=== PATIENT | male | born 1955 | race Caucasian/White ===

== ENCOUNTER → 2016-06-09 | Outpatient (CLI) | payer OTHER ==
[~2016-06-09] MED LIST: CYCL10TA PO; FISH1000 PO; IBUP200C PO; MULTCAP PO; SILD25TA PO; TAMS0.4C2 PO; [UNRECOGNIZED DRUG - OTHER] PO
--- NOTE | 2016-07-03 23:29 | ECWPNPC ---
PATIENT NAME: JOHANN METCALF : 1955 GENDER: MALE VISIT DATE: 06/09/2016 DISCHARGE DATE: 06/09/16 1425 VISIT LOCKED DATE TIME: PHYSICIAN: ALVARO HARRELL RESOURCE: ALVARO HARRELL REASON FOR APPOINTMENT 1. LOW BACK HISTORY OF PRESENT ILLNESS HISTORY OF PRESENT ILLNESS: PAIN THE PATIENT DESCRIBES THE PAIN... FALL RISK SCREENING: SCREENING :NO FALLS IN THE PAST YEAR TODAY'S VISIT: NOTES: FOLLOWUP FOR LOW BACK PAIN . RATES PAIN TODAY 5/10. DESCRIBES PAIN CONSTANT, ACHING, BURNING, SHARP AND STIFF. PAIN CENTERED ACROSS LOSS BACK WITH MINIMAL RADIATION TO LEGSMORNING SPECIFICALLY. REPORTS IT IS HARD TO MOVE, PAIN TO RISE TO A STANDING POSITION OR TO WALK ANY DISTANCE.. CURRENT MEDICATIONS TAKING ACETAMINOPHEN 500 MG TABLET 2 CAP(S) ORALLY PRN, NOTES: 2 WEEKS TAKING TAMSULOSIN HCL 0.4 MG CAPSULE 1 CAPSULE ORAL DAILY, NOTES: 9PM TAKING VIAGRA 50 MG TABLET ORAL DIRECTED, NOTES: 1 WEEK AGO TAKING MULTIVITAMIN TABLET CHEWABLE ORALLY DAILY, NOTES: 8AM TAKING FISH OIL 1000 MG CAPSULE 1 CAPSULE ORALLY ONCE A DAY, NOTES: 8AM TAKING CINNAMON 500 MG CAPSULE 2 CAPSULES ORALLY DAILY TAKING VITAMIN D-3 SUPER STRENGTH 2000 UNIT TABLET 1 TABLET ORALLY ONCE A DAY TAKING MYRBETRIQ 25 MG TABLET EXTENDED RELEASE 24 HOUR 1 TABLET ORALLY ONCE A DAY NOT-TAKING GABAPENTIN 300 MG CAPSULE 1 CAPSULE ORALLY THREE TIMES A DAY, NOTES: 1 WEEK AGO MEDICATION LIST REVIEWED AND RECONCILED WITH THE PATIENT PAST MEDICAL HISTORY ARTHRITIS ATYPICAL ANGINA ALLERGIES N.K.D.A. SOCIAL HISTORY GENERAL: TOBACCO USE ARE YOU A:NONSMOKER LEARNING BARRIERS / SPECIAL NEEDS ORIENTED TO PLAN OF CARE: PATIENT, PAIN MANAGEMENT PATIENT, ORIENTED TO PLAN OF CARE: PATIENT, PAIN MANAGEMENT PATIENT. NEW PATIENT PAIN DIARY TODAY'S VISITNOTES FROM 0-10, WHAT LEVEL IS YOUR PAIN TODAY?0 PAIN CLINIC PFS, CLERGY, PUBLIC HEALTH REFERRALS PFS REFERRAL NEEDED?NO CLERGY REFERRAL NEEDED?NO PUBLIC HEALTH REFERRAL NEEDED?NO WAS THE PROVIDER NOTIFIED OF ANY PERTINENT INFO?NO PFS REFERRAL NEEDED?NO CLERGY REFERRAL NEEDED?NO PUBLIC HEALTH REFERRAL NEEDED?NO WAS THE PROVIDER NOTIFIED OF ANY PERTINENT INFO?NO REVIEW OF SYSTEMS CONSTITUTIONAL: ANY CHANGE IN YOUR MEDICAL CONDITION? NO . CHILLS NO . FEVER NO . INFECTION: DO YOU HAVE NEW INFECTIONS? NO . DO YOU HAVE HISTORY OF MRSA? NO . MUSCULOSKELETAL: ANY NEW PATTERNS OF PAIN OR NUMBNESS? NO . GASTROENTEROLOGY: ANY NEW CHANGE IN BOWEL CONTROL? NO . GENITOURINARY: ANY NEW CHANGE IN BLADDER CONTROL? NO . IS THERE A CHANCE YOU COULD BE ? NO . HEMATOLOGY/LYMPH: DO YOU TAKE ANY BLOOD THINNERS? (FOR EXAMPLE- COUMADIN, PLAVIX, AGGRENOX, PLATEL, PRADAXA, OR XARELTO) NO . WHEN WAS YOUR LAST DOSE? DATE: TIME: . NEUROLOGY: HAVE YOU FALLEN IN THE PAST 6 MONTHS? NO . ANY NEW EXTREMITY NUMBNESS OR WEAKNESS? NO . CARDIOLOGY: DO YOU HAVE A PACEMAKER OR DEFIBRILLATOR? NO . RESPIRATORY: HAVE YOU BEEN SICK IN THE PAST WEEK? NO . FEVER NO . FLU LIKE SYMPTOMS? NO . COUGH NO . INTEGUMENTARY: DO YOU HAVE ANY RASHES OR OPEN SORES? NO . ALLERGIC/IMMUNO: ARE YOU ALLERGIC TO SHELLFISH OR IV DYE? NO . ANY NEW ALLERGIES? NO . PSYCHIATRIC: DO YOU HAVE THOUGHTS OF HURTING YOURSELF OR SOMEONE ELSE? NO . ARE YOU ABUSED, NEGLECTED, OR IN AN UNSAFE ENVIRONMENT? NO . ENDOCRINOLOGY: ARE YOU DIABETIC? NO . OTHER: DO YOU NEED ANY PRESCRIPTIONS? NO . IF YES, PLEASE LIST: ____ . ANY NEW PROBLEMS WITH YOUR MEDICATIONS? NO . WHEN DID YOU LAST EAT? ____ . WHEN DID YOU LAST DRINK? ____ . WHAT DID YOU LAST DRINK? ____ . NAME OF PERSON DRIVING YOU HOME? ____ . DO YOU HAVE ANY OTHER QUESTIONS OR CONCERNS NO . REVIEWED BY: PROVIDER: ALVARO LEE . VITAL SIGNS WT 195 LBS, HT 72 IN, BMI 26.44 INDEX, BP 172/84 MM HG, HR 91 /MIN, RR 18 /MIN, TEMP 97.5 F, OXYGEN SAT % 99, NA INITIALS TL 1352, REVIEWED BY: AD. EXAMINATION GENERAL EXAMINATION: PSYCHALERT , ORIENTED X 3 , APPROPRIATE MOOD AND AFFECT . APPEARS UNCOMFORTABLE. LUNGS:CLEAR TO AUSCULTATION BILATERALLY. HEART:HEART RATE REGULAR. MUSCULOSKELETAL:PALPATION: POSITIVE FOR PAIN OVER L/S SPINE. POSITIVE FOR PAIN OVER L/S PARASPINAL MUSCLES AND LUMBAR FACETS. SLOW TO RISE TO STANDING POSITION. PAIN REPORTED WITH BACK EXTENSION ACROSS LOW BACK. MODERATE PAIN WITH BACK FLEXION. , TRIGGER POINTS:, ELICITED WITH PALPATION OVER LUMBAR PARAVERTEBRAL MUSCLES AND INTO THE SECRUM. RESTRICTION OF ROM IN THIS AREA. ASSESSMENTS LUMBAR FACET ARTHROPATHY - M12.88 (PRIMARY) MYALGIA - M79.1 LUMBAR RADICULOPATHY, CHRONIC - M54.16 TREATMENT LUMBAR FACET ARTHROPATHY NOTES: ENCOURAGED TO DO EXERCISES AND STRETCHES PER PHYSICAL THERAPY. WALK EVERY DAY. MYALGIA TRIGGER POINT 3 + ALVARO FELIPE 06/09/2016 2:16:18 PM > LOW BACK NOTES: WALK TOLERATED. PROCEDURES PN WORKMANS' COMP OPINION IN YOUR OPINION, WAS THE INCIDENT THAT THE PATIENT DESCRIBED THE COMPETENT MEDICAL CAUSE OF THIS INJURY/ILLNESS? YES ARE THE PATIENT'S COMPLAINTS CONSISTENT WITH HIS/HER HISTORY OF THE INJURY/ILLNESS? YES IS THE PATIENT'S HISTORY OF THE INJURY/ILLNESS CONSISTENT WITH YOUR OBJECTIVE FINDING? YES WHAT IS THE PERCENTAGE OF TEMPORARY IMPAIRMENT? TOTAL = 100% PER REFERRING PROVIDER IS THE PATIENT WORKING? NO DOCTOR ON SITE: TARNU DENTON MD PROCEDURE CODES FA211 ESTABILISHED PATIENT [facility] CHARGE FOLLOW UP WC LOW BACK (REASON: CHECK AUTH FOR TPI) ELECTRONICALLY SIGNED BY JEFRY CARTWRIGHT ON 07/02/2016 AT 01:25 PM EST DISCLAIMER : THIS IS A VISIT SUMMARY EXTRACTED FROM THE [employer] CHART. IT IS NOT A COPY OF THE [employer] PROGRESS NOTE. EMORY
== END ==
LOC: M PAIN 14:00
PROVIDERS: ATTEND Nurse Practitioner Family
DX: Z09 Encounter for follow-up examination after completed treatment for conditions other than malignant neoplasm (principal); G89.29 Other chronic pain; M12.88 Other specific arthropathies, not elsewhere classified, other specified site; M79.1 Myalgia; M54.16 Radiculopathy, lumbar region; I20.9 Angina pectoris, unspecified; Z79.1 Long term (current) use of non-steroidal anti-inflammatories (NSAID); Z79.899 Other long term (current) drug therapy

== ENCOUNTER → 2016-09-15 | Outpatient (CLI) | payer OTHER ==
[~2016-09-15] MED LIST changes: +BUPIVACAINE HCL 0.25% 10 ML VIAL As Ordered ONE; +BUPIVACAINE HCL 0.25% 30 ML VIAL As Ordered ONE; +TRIAMCINOLONE ACETONIDE SUSP 40 MG/ML VIAL (J3301) As Ordered ONE
--- NOTE | 2016-09-20 00:29 | ECWPNPC ---
PATIENT NAME: JOHANN METCALF : 1955 GENDER: MALE VISIT DATE: 09/15/2016 DISCHARGE DATE: 09/15/16 1453 VISIT LOCKED DATE TIME: PHYSICIAN: TARUN ALCOCER RESOURCE: TARUN ALCOCER REASON FOR APPOINTMENT 1. TPI-W/C HISTORY OF PRESENT ILLNESS HISTORY OF PRESENT ILLNESS: PAIN THE PATIENT DESCRIBES THE PAIN... FALL RISK SCREENING: SCREENING :NO FALLS IN THE PAST YEAR CURRENT MEDICATIONS TAKING ACETAMINOPHEN 500 MG TABLET 2 CAP(S) ORALLY PRN, NOTES: NONE RECENT TAKING TAMSULOSIN HCL 0.4 MG CAPSULE 1 CAPSULE ORAL DAILY, NOTES: [id number] TAKING VIAGRA 50 MG TABLET ORAL DIRECTED, NOTES: 1 WEEK AGO TAKING MULTIVITAMIN TABLET CHEWABLE ORALLY DAILY, NOTES: 09-14-16 AM TAKING FISH OIL 1000 MG CAPSULE 1 CAPSULE ORALLY ONCE A DAY, NOTES: 09-14-16 AM TAKING CINNAMON 500 MG CAPSULE 2 CAPSULES ORALLY DAILY, NOTES: 09-14-16 AM TAKING VITAMIN D3 SUPER STRENGTH 2000 UNIT TABLET 1 TABLET ORALLY ONCE A DAY, NOTES: 09-14-16 AM TAKING MYRBETRIQ 25 MG TABLET EXTENDED RELEASE 24 HOUR 1 TABLET ORALLY ONCE A DAY, NOTES: [id number] DISCONTINUED GABAPENTIN 300 MG CAPSULE 1 CAPSULE ORALLY THREE TIMES A DAY MEDICATION LIST REVIEWED AND RECONCILED WITH THE PATIENT PAST MEDICAL HISTORY ARTHRITIS ATYPICAL ANGINA ALLERGIES N.K.D.A. SOCIAL HISTORY GENERAL: PAIN CLINIC PFS, CLERGY, PUBLIC HEALTH REFERRALS CLERGY REFERRAL NEEDED?NO WAS THE PROVIDER NOTIFIED OF ANY PERTINENT INFO?NO PFS REFERRAL NEEDED?NO PUBLIC HEALTH REFERRAL NEEDED?NO PATIENT: ____. REVIEW OF SYSTEMS CONSTITUTIONAL: ANY CHANGE IN YOUR MEDICAL CONDITION? YES, LEFT KNEE SCOPE IN JUN 2016 ALL HEALED . CHILLS NO . FEVER NO . INFECTION: DO YOU HAVE NEW INFECTIONS? NO . DO YOU HAVE HISTORY OF MRSA? NO . MUSCULOSKELETAL: ANY NEW PATTERNS OF PAIN OR NUMBNESS? NO . GASTROENTEROLOGY: ANY NEW CHANGE IN BOWEL CONTROL? NO . GENITOURINARY: ANY NEW CHANGE IN BLADDER CONTROL? NO . IS THERE A CHANCE YOU COULD BE ? NO . HEMATOLOGY/LYMPH: DO YOU TAKE ANY BLOOD THINNERS? (FOR EXAMPLE- COUMADIN, PLAVIX, AGGRENOX, PLATEL, PRADAXA, OR XARELTO) NO . WHEN WAS YOUR LAST DOSE? DATE: TIME: . NEUROLOGY: HAVE YOU FALLEN IN THE PAST 6 MONTHS? NO . ANY NEW EXTREMITY NUMBNESS OR WEAKNESS? NO . CARDIOLOGY: DO YOU HAVE A PACEMAKER OR DEFIBRILLATOR? NO . RESPIRATORY: HAVE YOU BEEN SICK IN THE PAST WEEK? NO . FEVER NO . FLU LIKE SYMPTOMS? NO . COUGH NO . INTEGUMENTARY: DO YOU HAVE ANY RASHES OR OPEN SORES? NO . ALLERGIC/IMMUNO: ARE YOU ALLERGIC TO SHELLFISH OR IV DYE? NO . ANY NEW ALLERGIES? NO . PSYCHIATRIC: DO YOU HAVE THOUGHTS OF HURTING YOURSELF OR SOMEONE ELSE? NO . ARE YOU ABUSED, NEGLECTED, OR IN AN UNSAFE ENVIRONMENT? NO . ENDOCRINOLOGY: ARE YOU DIABETIC? NO . OTHER: DO YOU NEED ANY PRESCRIPTIONS? NO . IF YES, PLEASE LIST: ____ . ANY NEW PROBLEMS WITH YOUR MEDICATIONS? NO . WHEN DID YOU LAST EAT? [id number] . WHEN DID YOU LAST DRINK? [id number] . WHAT DID YOU LAST DRINK? COFFEE . NAME OF PERSON DRIVING YOU HOME? MAUREEN . DO YOU HAVE ANY OTHER QUESTIONS OR CONCERNS NO . REVIEWED BY: PROVIDER: . VITAL SIGNS WT 195 LBS, HT 72 IN, BMI 26.44 INDEX, BP 156/92 MM HG, HR 78 /MIN, RR 18 /MIN, TEMP 98.0 F, OXYGEN SAT % 97%, NA INITIALS AW 1315, REVIEWED BY: CM. ASSESSMENTS MYALGIA - M79.1 (PRIMARY) PROCEDURES PN TRIGGER POINT INJECTION WITH STEROIDS PRE PROCEDURE DIAGNOSIS 1. MYALGIA 2. PAIN AT BILATERAL LOWER BACK AREA POST PROCEDURE DIAGNOSIS 1. MYALGIA 2. PAIN AT BILATERAL LOWER BACK AREA PROCEDURE TRIGGER POINT INJECTION AT BILATERAL LOWER BACK AREA SURGEON DR. TARUN ALCOCER LICENSED AIRCRAFT MAINTENANCE ENGINEER NONE ANESTHESIA LOCAL PRE PROCEDURE NOTE THE PATIENT HAS A HISTORY OF CHRONIC PAIN AT THE RIGHT AND LEFT LOWER BACK AREA. I EVALUATE THE PATIENT AND REVIEWED THE CHART. THERE IS EVIDENCE OF BANDS OF TISSUE WITH RESTRICTION OF MOVEMENT AND PRESENCE OF TRIGGER POINT AT THE AFFECTED AREA. I WENT OVER THE RISKS, ALTERNATIVES, AND BENEFITS ASSOCIATED WITH THIS PROCEDURE. THE PATIENT WOULD LIKE TO PROCEED AND GIVE CONSENT TO PERFORMED THE PROCEDURE. THE PATIENT DENIES UNEXPLAINABLE WEIGHT LOSS, FEVER, CHILLS, OR NEW CHANGES IN URINARY OR BOWEL CONTROL DESCRIPTION OF PROCEDURE THE PATIENT WAS BROUGHT TO THE PROCEDURE ROOM AND PLACED IN THE SITTING POSITION. THE AREA WAS CLEANED WITH ALCOHOL. THE PROCEDURE WAS DONE USING ASEPTIC STERILE TECHNIQUE. I CHECKED LATERALITY AND THE LEVEL WHERE THE PROCEDURE WAS GOING TO BE PERFORMED WITH THE PATIENT AND THE SUPPORTING STAFF AT THE MOMENT OF THE TIME OUT IN THE PROCEDURE ROOM. USING A 25-GAUGE NEEDLE, TRIGGER POINTS WERE INJECTED AT THE RIGHT AND LEFT LOWER BACK AREA WITH A TOTAL OF 40 ML OF BUPIVACAINE 0.25% AND KENALOG 40 MG. THERE WAS NO EVIDENCE OF BLOOD, PARESTHESIA OR CEREBROSPINAL FLUID DURING THE PROCEDURE. THE PATIENT WAS SENT TO THE RECOVERY ROOM. THE PATIENT WAS MOVING THE EXTREMITIES AND DOING WELL. THERE WAS NO COMPLICATION DURING THE PROCEDURE POST PROCEDURE NOTE THE PATIENT WILL BE SEEN IN A FOLLOW UP IN THE NEXT FEW WEEKS. INSTRUCTIONS WERE GIVEN, QUESTIONS WERE ANSWERED, AND THE PATIENT EXPRESSED UNDERSTANDING AND AGREES WITH THE PLAN. I, ALIREZA PÉREZ, DOCUMENTED THE ABOVE INFORMATION ACTING A SCRIBE FOR DR. ALCOCER. I HAVE REVIEWED THE ABOVE DOCUMENT, WRITTEN BY ALIREZA PÉREZ SCRIBE AND I VERIFY THAT IT IS ACCURATE. PN WORKMANS' COMP OPINION IN YOUR OPINION, WAS THE INCIDENT THAT THE PATIENT DESCRIBED THE COMPETENT MEDICAL CAUSE OF THIS INJURY/ILLNESS? YES ARE THE PATIENT'S COMPLAINTS CONSISTENT WITH HIS/HER HISTORY OF THE INJURY/ILLNESS? YES IS THE PATIENT'S HISTORY OF THE INJURY/ILLNESS CONSISTENT WITH YOUR OBJECTIVE FINDING? YES WHAT IS THE PERCENTAGE OF TEMPORARY IMPAIRMENT? TOTAL = 100% IS THE PATIENT WORKING? NO DOCTOR ON SITE: TARUN DENTON MD PROCEDURE CODES 39121 INJ TRIGGER POINT 1/2 MUSCL DISPOSITION & COMMUNICATION FOLLOW UP 3 WEEKS ELECTRONICALLY SIGNED BY TARUN ALCOCER MD ON 09/19/2016 AT 05:59 PM EDT DISCLAIMER : THIS IS A VISIT SUMMARY EXTRACTED FROM THE [employer] CHART. IT IS NOT A COPY OF THE [employer] PROGRESS NOTE. EMORY
== END ==
LOC: M PAIN 13:00
PROVIDERS: ATTEND Anesthesiology
DX: G89.29 Other chronic pain (principal); M79.1 Myalgia; M54.5 Low back pain; M19.90 Unspecified osteoarthritis, unspecified site; I20.9 Angina pectoris, unspecified; Z79.1 Long term (current) use of non-steroidal anti-inflammatories (NSAID); Z79.899 Other long term (current) drug therapy
CPT/HCPCS: 20552; J3301

== ENCOUNTER → 2016-10-12 | Outpatient (CLI) | payer OTHER ==
[~2016-10-12] MED LIST changes: -BUPIVACAINE HCL 0.25% 10 ML VIAL As Ordered ONE; -BUPIVACAINE HCL 0.25% 30 ML VIAL As Ordered ONE; -TRIAMCINOLONE ACETONIDE SUSP 40 MG/ML VIAL (J3301) As Ordered ONE
--- NOTE | 2016-10-23 00:34 | ECWPNPC ---
PATIENT NAME: JOHANN METCALF : 1955 GENDER: MALE VISIT DATE: 10/12/2016 DISCHARGE DATE: 10/12/16 1602 VISIT LOCKED DATE TIME: PHYSICIAN: TARUN ALCOCER RESOURCE: TARUN ALCOCER REASON FOR APPOINTMENT 1. WC, POST PROCEDURE HISTORY OF PRESENT ILLNESS HISTORY OF PRESENT ILLNESS: PAIN THE PATIENT DESCRIBES THE PAIN... 61 YEAR OLD MALE PATIENT WITH HISTORY OF CHRONIC BACK PAIN. PATIENT DESCRIBES THE PAIN ACHING, THROBBING, AND HAVING IT ALL THE TIME WITH A PAIN SCORE OF 6/10 ON TODAY'S VISIT. PATIENT WAS INJURED IN A WORK RELATED INJURY ON 05-04-2013 WORKING FOR [employer]. PATIENT WAS HELPING AN INMATE OFF THE BACK OF THE VAN WHEN THE INMATE FELL ON HIM, INJURING MR. METCALF'S BACK. PATIENT DENIES HAVING ANY BACK SURGERIES. PATIENT STATES THAT HE HAS TRIED PHYSICAL THERAPY IN THE PAST HE REMEMBERS THAT IT HELPED HIM FOR BIT. PATIENT REPORTS THAT HE DOES SOME PHYSICAL THERAPY EXERCISES AT HOME. PATIENT RECEIVED A TPI IN THE BILATERAL LOW BACK AREA AND STATES THAT HE HAS OVER 50% OF PAIN RELIEF INCREASING HIS MOBILITY AND FUNCTIONALITY. PATIENT REPORTS OF RADIATING PAIN DOWN THE RIGHT LEG. PATIENT DENIES UNEXPLAINABLE WEIGHT LOSS, FEVER, CHILLS, NEW CHANGES ON HIS URINARY OR BOWEL CONTROL. FALL RISK SCREENING: SCREENING :NO FALLS IN THE PAST YEAR CURRENT MEDICATIONS TAKING ACETAMINOPHEN 500 MG TABLET 2 CAP(S) ORALLY PRN TAKING TAMSULOSIN HCL 0.4 MG CAPSULE 1 CAPSULE ORAL DAILY TAKING VIAGRA 50 MG TABLET ORAL DIRECTED TAKING MULTIVITAMIN TABLET CHEWABLE ORALLY DAILY TAKING FISH OIL 1000 MG CAPSULE 1 CAPSULE ORALLY ONCE A DAY TAKING CINNAMON 500 MG CAPSULE 2 CAPSULES ORALLY DAILY TAKING VITAMIN D3 SUPER STRENGTH 2000 UNIT TABLET 1 TABLET ORALLY ONCE A DAY TAKING MYRBETRIQ 25 MG TABLET EXTENDED RELEASE 24 HOUR 1 TABLET ORALLY ONCE A DAY MEDICATION LIST REVIEWED AND RECONCILED WITH THE PATIENT PAST MEDICAL HISTORY ARTHRITIS ATYPICAL ANGINA ALLERGIES N.K.D.A. SURGICAL HISTORY APPENDECTOMY ANKLE SURGURY SHOULDER SURGURY NECK SURGERY ANTERIOR/POSTERIOR 06/17/2015 RIGHT ELBOW SURGERY 12/30/2015 FAMILY HISTORY NO FAMILY HISTORY DOCUMENTED. SOCIAL HISTORY GENERAL: PAIN CLINIC PFS, CLERGY, PUBLIC HEALTH REFERRALS CLERGY REFERRAL NEEDED?NO WAS THE PROVIDER NOTIFIED OF ANY PERTINENT INFO?NO PFS REFERRAL NEEDED?NO PUBLIC HEALTH REFERRAL NEEDED?NO PATIENT: ____. HOSPITALIZATION/MAJOR DIAGNOSTIC PROCEDURE SURGERIES REVIEW OF SYSTEMS CONSTITUTIONAL: ANY CHANGE IN YOUR MEDICAL CONDITION? NO . CHILLS NO . FEVER NO . INFECTION: DO YOU HAVE NEW INFECTIONS? NO . DO YOU HAVE HISTORY OF MRSA? NO . MUSCULOSKELETAL: ANY NEW PATTERNS OF PAIN OR NUMBNESS? YES, PAIN RIGHT HIP RADIATING INTO BACK . GASTROENTEROLOGY: ANY NEW CHANGE IN BOWEL CONTROL? NO . GENITOURINARY: ANY NEW CHANGE IN BLADDER CONTROL? NO . IS THERE A CHANCE YOU COULD BE ? NO . HEMATOLOGY/LYMPH: DO YOU TAKE ANY BLOOD THINNERS? (FOR EXAMPLE- COUMADIN, PLAVIX, AGGRENOX, PLATEL, PRADAXA, OR XARELTO) NO . WHEN WAS YOUR LAST DOSE? DATE: TIME: . NEUROLOGY: HAVE YOU FALLEN IN THE PAST 6 MONTHS? NO . ANY NEW EXTREMITY NUMBNESS OR WEAKNESS? NO . CARDIOLOGY: DO YOU HAVE A PACEMAKER OR DEFIBRILLATOR? NO . RESPIRATORY: HAVE YOU BEEN SICK IN THE PAST WEEK? NO . FEVER NO . FLU LIKE SYMPTOMS? NO . COUGH NO . INTEGUMENTARY: DO YOU HAVE ANY RASHES OR OPEN SORES? NO . ALLERGIC/IMMUNO: ARE YOU ALLERGIC TO SHELLFISH OR IV DYE? NO . ANY NEW ALLERGIES? NO . PSYCHIATRIC: DO YOU HAVE THOUGHTS OF HURTING YOURSELF OR SOMEONE ELSE? NO . ARE YOU ABUSED, NEGLECTED, OR IN AN UNSAFE ENVIRONMENT? NO . ENDOCRINOLOGY: ARE YOU DIABETIC? NO . OTHER: DO YOU NEED ANY PRESCRIPTIONS? NO . IF YES, PLEASE LIST: ____ . ANY NEW PROBLEMS WITH YOUR MEDICATIONS? NO . WHEN DID YOU LAST EAT? ____ . WHEN DID YOU LAST DRINK? ____ . WHAT DID YOU LAST DRINK? ____ . NAME OF PERSON DRIVING YOU HOME? ____ . DO YOU HAVE ANY OTHER QUESTIONS OR CONCERNS NO . REVIEWED BY: PROVIDER: TARUN ALCOCER MD . VITAL SIGNS WT 204.2 LBS, HT 72 IN, BMI 27.69 INDEX, BP 156/92 MM HG, HR 84 /MIN, RR 16 /MIN, TEMP 98.3 F, OXYGEN SAT % 94%, NA INITIALS SC 14:48, REVIEWED BY: AD. EXAMINATION : PATIENT IS ALERT O X 3 AND COOPERATIVE. THERE IS TENDERNESS IN THE LOW BACK AREA. PATIENT'S RIGHT LEG IS WEAKER AT FLEXION AND EXTENSION COMPARED TO THE LEFT LEG. MRI OF THE LUMBAR SPINE DONE ON 09/14/2013 SHOWS DISC BULGES AT L2-L3 TO L4-L5. ASSESSMENTS INTERVERTEBRAL DISC DISORDERS WITH RADICULOPATHY, LUMBAR REGION - M51.16 (PRIMARY) TREATMENT INTERVERTEBRAL DISC DISORDERS WITH RADICULOPATHY, LUMBAR REGION NOTES: WE DISCUSSED SEVERAL ISSUES WITH MR. METCALF'S PAIN MANAGEMENT CASE. AT THIS TIME I WILL HAVE THE PATIENT START ON GABAPENTIN 100 MG AT NIGHT. INFORMED THE PATIENT TO TAKE ONE TABLET AT NIGHT FOR A WEEK, THEN INCREASE TO 2 A NIGHT FOR A WEEK, THEN TO A MAX OF 3 A DAY. INFORMED THE PATIENT SHOULD HE EXPERIENCE ANY ADVERSE SIDE EFFECTS TO STOP TAKING THE MEDICATION. PATIENT IS TAKING GABAPENTIN FOR NEUROPATHIC PAIN. AFTER EXAMINING THE PATIENT AND REVIEWING THE LUMBAR MRI PATIENT IS A GOOD CANDIDATE FOR A L4-L5 LUMBAR EPIDURAL INJECTION. WE DISCUSSED THE RISK, BENEFITS, AND ALTERNATIVES AND THE PATIENT WOULD LIKE TO PROCEED. PATIENT WILL BE BOOKED PENDING APPROVAL. PATIENT WILL FOLLOW UP WITH ME IN 2 MONTHS. INSTRUCTIONS WERE GIVEN, QUESTIONS WERE ANSWERED, PATIENT REPORTS UNDERSTANDING AND AGREES WITH THE PLAN. I, ALIREZA PÉREZ, DOCUMENTED THE ABOVE INFORMATION ACTING A SCRIBE FOR DR. ALCOCER. I HAVE REVIEWED THE ABOVE DOCUMENT, WRITTEN BY ALIREZA PÉREZ SCRIBE AND I VERIFY THAT IT IS ACCURATE. OTHERS START GABAPENTIN CAPSULE, 100 MG, DIRECTED, ORALLY FOR PAIN, THREE TIMES DAILY MDD3, 30 DAY(S), 90, REFILLS 1 PROCEDURES PN WORKMANS' COMP OPINION IN YOUR OPINION, WAS THE INCIDENT THAT THE PATIENT DESCRIBED THE COMPETENT MEDICAL CAUSE OF THIS INJURY/ILLNESS? YES ARE THE PATIENT'S COMPLAINTS CONSISTENT WITH HIS/HER HISTORY OF THE INJURY/ILLNESS? YES IS THE PATIENT'S HISTORY OF THE INJURY/ILLNESS CONSISTENT WITH YOUR OBJECTIVE FINDING? YES WHAT IS THE PERCENTAGE OF TEMPORARY IMPAIRMENT? TOTAL = 100% PER REFERRING PROVIDER IS THE PATIENT WORKING? NO DOCTOR ON SITE: TARUN DENTON MD PROCEDURE CODES FA211 ESTABILISHED PATIENT [facility] FACILITY CHARGE G8730 PAIN ASSESS POS TOOL F/U PLAN DOC G8427 DOC MEDS VERIFIED W/PT OR RE DISPOSITION & COMMUNICATION FOLLOW UP 2 MONTHS ELECTRONICALLY SIGNED BY TARUN ALCOCER MD ON 10/22/2016 AT 04:05 PM EDT DISCLAIMER : THIS IS A VISIT SUMMARY EXTRACTED FROM THE [employer] CHART. IT IS NOT A COPY OF THE [facility] PROGRESS NOTE. MTDD
== END ==
LOC: M PAIN 14:40
PROVIDERS: ATTEND Anesthesiology
DX: G89.29 Other chronic pain (principal); M51.16 Intervertebral disc disorders with radiculopathy, lumbar region; M19.90 Unspecified osteoarthritis, unspecified site; M25.551 Pain in right hip; Z79.1 Long term (current) use of non-steroidal anti-inflammatories (NSAID); Z79.899 Other long term (current) drug therapy

== ENCOUNTER → 2016-12-14 | Outpatient (CLI) | payer OTHER ==
[~2016-12-14] MED LIST changes: -IBUP200C PO; +IBUP200C10 PO
== END ==
LOC: M PAIN 08:30
PROVIDERS: ATTEND Anesthesiology
DX: Z53.29 Procedure and treatment not carried out because of patient's decision for other reasons (principal)

== ENCOUNTER 2017-09-28 06:58 | Day surgery (SDC) | payer MEDICARE, BC, OTHER ==
[2017-09-28] MEDS: NS 1,000 ML IV (07:15)
[2017-09-28] MEDS ORDERED: PROPOFOL 200 MG/20 ML VIAL As Ordered ×2 (07:22→08:18)
== END 2017-09-28 09:16 | disposition home or self-care (01) ==
LOC: M OPP 06:58
DX: Z12.11 Encounter for screening for malignant neoplasm of colon (principal); Z86.010 Personal history of colon polyps; D12.2 Benign neoplasm of ascending colon; K64.0 First degree hemorrhoids; M19.90 Unspecified osteoarthritis, unspecified site; M54.2 Cervicalgia; M54.89 Other dorsalgia; N40.1 Benign prostatic hyperplasia with lower urinary tract symptoms; Z87.891 Personal history of nicotine dependence; Z79.899 Other long term (current) drug therapy; Z80.7 Family history of other malignant neoplasms of lymphoid, hematopoietic and related tissues
CPT/HCPCS: 45380

== ENCOUNTER → 2020-02-07 | Outpatient (REF) | payer MEDICARE, OTHER ==
[~2020-02-07] MED LIST changes: +CINN500C9 PO; +CYCL-707 PO; -CYCL10TA PO; -IBUP200C10 PO; +IBUP200C25 PO; +VITA100067 PO
== END ==
LOC: M LAB REF 12:28
PROVIDERS: ATTEND Internal Medicine
DX: E05.00 Thyrotoxicosis with diffuse goiter without thyrotoxic crisis or storm (principal)

== ENCOUNTER → 2020-04-16 | Outpatient (REF) | payer MEDICARE, OTHER | LOC: M LAB REF 10:51 | PROVIDERS: ATTEND Internal Medicine | DX: E05.00 Thyrotoxicosis with diffuse goiter without thyrotoxic crisis or storm (principal) ==

== ENCOUNTER → 2020-12-01 | Outpatient (REF) | payer MEDICARE, OTHER | LOC: M LAB REF 19:52 | PROVIDERS: ATTEND Physician Assistant | DX: E86.0 Dehydration (principal) ==

== ENCOUNTER → 2021-01-02 | Outpatient (CLI) | payer MEDICARE, OTHER ==
[~2021-01-02] MED LIST changes: +LISI20TA33 PO; +PRAV20TA2 PO; +SM C PO; +TIZA4TAB4; +VITMTA PO
== END ==
LOC: M LABSMTC 10:55
PROVIDERS: ATTEND Anesthesiology
DX: Z01.812 Encounter for preprocedural laboratory examination (principal)

== ENCOUNTER 2021-01-07 08:47 | Day surgery (SDC) | payer MEDICARE, BC, OTHER ==
[~2021-01-07] VITALS: Ht 182.9 cm; Wt 85.9 kg
[~2021-01-07 08:47] MED LIST changes: +NS 1,000 ML IV ONE
[2021-01-07] MEDS ORDERED: CINN500C2 PO (09:41)
[2021-01-07] MEDS ORDERED: FISH1000 PO (09:41)
[2021-01-07] MEDS ORDERED: LIDOCAINE 2% 100MG/5ML SDV (FOR ANES.) As Ordered ONE (10:21)
[2021-01-07] MEDS ORDERED: propofoL 200 MG/20 ML VIAL As Ordered ONE (10:21)
--- NOTE | 2021-01-07 10:40 | ROOR ---
Patient Name: Justin Velasquez Procedure Date: 01/07/2021 10:13 AM Date of : 1955 Age: 65 Room: [facility] Gender: Male Note Status: Finalized Procedure: Total Colonoscopy to Cecum + ileoscopy + Bx Indications: High risk colon cancer surveillance: Personal history of colonic polyps, Last colonoscopy: 2017 Providers: Yovanny Ashley MD Referring MD: Sharmin HUNT MD Requesting Provider: Medicines: Monitored Anesthesia Care Complications: No immediate complications. Procedure: Pre-Anesthesia Assessment: - The heart rate, respiratory rate, oxygen saturations, blood pressure, adequacy of pulmonary ventilation, and response to care were monitored throughout the procedure. The Colonoscope was introduced through the anus and advanced to the cecum, identified by appendiceal orifice and ileocecal valve. The colonoscopy was performed without difficulty. The patient tolerated the procedure well. The quality of the bowel preparation was excellent. Findings: The perianal and digital rectal examinations were normal. Non-bleeding internal hemorrhoids were found during retroflexion. The hemorrhoids were small and Grade I (internal hemorrhoids that do not prolapse). A diminutive polyp was found in the ascending colon. The polyp was sessile. The polyp was removed with a cold biopsy forceps. Resection and retrieval were complete. Biopsies for histology were taken with a cold forceps from the cecum, ascending colon, transverse colon and descending colon for evaluation of microscopic colitis. The exam was otherwise without abnormality on direct and retroflexion views. The terminal ileum appeared normal. Impression: - Non-bleeding internal hemorrhoids. - One diminutive polyp in the ascending colon, removed with a cold biopsy forceps. Resected and retrieved. Biopsied. - The examination was otherwise normal on direct and retroflexion views. - The examined portion of the ileum was normal. - The exam was otherwise normal to the cecum. Recommendation: - Patient has a contact number available for emergencies. The signs and symptoms of potential delayed complications were discussed with the patient. Return to normal activities tomorrow. Written discharge instructions were provided to the patient. - High fiber diet. - Discharge patient to home. - Continue present medications. - Await pathology results. - Telephone GI clinic for pathology results in 1 week. - Repeat colonoscopy in 5 years for surveillance of multiple polyps. - Return to referring physician. - The findings and recommendations were discussed with the patient's family. Procedure Code(s): --- Professional --- 52942, Colonoscopy, flexible; with biopsy, single or multiple Diagnosis Code(s): --- Professional --- Z86.010, Personal history of colonic polyps K64.0, First degree hemorrhoids K63.5, Polyp of colon CPT copyright 2019 [employer]. All rights reserved. The codes documented in this report are preliminary and upon rn progressive care unit review may be revised to meet current compliance requirements. Yovanny Ashley MD Yovanny Ashley MD 01/07/2021 10:39:34 AM Electronically signed by Yovanny Ashley MD Number of Addenda: 0 Note Initiated On: 01/07/2021 10:13 AM Estimated Blood Loss: Estimated blood loss: none.
[2021-01-07 11:00] VITALS: BP 119/62
== END 2021-01-07 11:51 | disposition home or self-care (01) ==
LOC: M OPP 08:47
PROVIDERS: ATTEND Internal Medicine Gastroenterology
DX: Z12.11 Encounter for screening for malignant neoplasm of colon (principal); Z86.010 Personal history of colon polyps; D12.2 Benign neoplasm of ascending colon; K64.0 First degree hemorrhoids; Z79.899 Other long term (current) drug therapy

== ENCOUNTER → 2021-03-02 | Outpatient (CLI) | payer MEDICARE, BC, OTHER ==
[~2021-03-02] MED LIST changes: +CINN500C2 PO; +ISOVUE-370 76% 100ML VIAL As Ordered ONE; -NS 1,000 ML IV ONE
--- NOTE | 2021-03-10 08:59 | REP ---
INDICATION: GROSS HEMATURIA. COMPARISON: 10/05/2013. TECHNIQUE: CT abdomen and pelvis performed without IV contrast. CT abdomen and pelvis performed with IV contrast as well, following intravenous administration of 100 cc of Isovue 370. Sagittal, coronal and 3D MIP reconstruction images are performed. FINDINGS: Lung bases: Unremarkable. Liver: Normal Gallbladder: Subtle densities in the dependent portion of gallbladder may represent tiny stones. Spleen: Normal. Adrenals: Normal. Pancreas: Normal. Kidneys: An exophytic cyst of the upper pole the right kidney posteriorly is mildly hyperdense but shows no suspicious enhancement. A benign nonenhancing cyst more anteriorly in the upper pole the right kidney measures 1.9 cm. A 1 cm cystic area in the lower pole the left kidney shows no suspicious enhancement and has decreased in size since the prior exam.. No calcifications are seen in either kidney or ureter. Small and large bowel: Unremarkable. Free fluid: None. Adenopathy: None. Appendix: Prior appendectomy. Osseous structures: There are degenerative changes of the spine without compression deformity. Pelvis: No mass. Metallic clips are seen in the prostate. No bladder calculus is seen. IMPRESSION: Benign nonenhancing renal cysts as discussed above. No urinary tract calculi. No bladder abnormality. Possible tiny gallstones in the dependent portion of gallbladder without biliary dilatation. <Electronically signed by Rufus Royal > 03/10/21 [id number]
== END ==
LOC: M RAD 10:20
PROVIDERS: ATTEND Urology
DX: R31.0 Gross hematuria (principal); N28.1 Cyst of kidney, acquired
CPT/HCPCS: 74178; Q9967

== ENCOUNTER → 2021-04-08 | Outpatient (REF) | payer MEDICARE, OTHER ==
[~2021-04-08] MED LIST changes: -ISOVUE-370 76% 100ML VIAL As Ordered ONE
[2021-04-08 12:41] LABS: APPEARANCE, URINE CLEAR (CLEAR); BACTERIA, URINE AUTO NEGATIVE (NEGATIVE); BILIRUBIN, URINE AUTO NEGATIVE (NEGATIVE); BLOOD, URINE BLOOD NEGATIVE (NEGATIVE); COLOR, URINE YELLOW (YELLOW); GLUCOSE, URINE (UA) AUTO NEGATIVE (NEGATIVE); KETONE, URINE AUTO NEGATIVE (NEGATIVE); LEUKOCYTE ESTERASE, URINE AUTO NEGATIVE (NEGATIVE); NITRITE, URINE AUTO NEGATIVE (NEGATIVE); PROTEIN, URINE AUTO NEGATIVE (NEGATIVE); RBC, URINE AUTO 0 /HPF (0-3); SPECIFIC GRAVITY URINE AUTO 1.011 (1.002-1.035); SQUAMOUS EPITHELIAL CELL UR AU 0 /HPF (0-6); UROBILINOGEN, URINE AUTO 0.2 mg/dL (0.0-2.0); WBC, URINE AUTO 0 /HPF (0-3)
== END ==
LOC: M LAB REF 12:22
PROVIDERS: ATTEND Internal Medicine
DX: Z01.818 Encounter for other preprocedural examination (principal)

== ENCOUNTER → 2021-04-20 | Outpatient (CLI) | payer MEDICARE, BC, OTHER | LOC: M LABSMTC 09:25 | PROVIDERS: ATTEND Urology | DX: Z20.822 Contact with and (suspected) exposure to COVID-19 (principal) ==

== ENCOUNTER → 2021-07-24 | Outpatient (CLI) | payer OTHER ==
[~2021-07-24] MED LIST changes: +TIZA10TA; -TIZA4TAB4
== END ==
LOC: M PLAIMG 12:10
PROVIDERS: ATTEND Orthopaedic Surgery
DX: M54.50 Low back pain, unspecified (principal)

== ENCOUNTER → 2021-10-14 | Outpatient (CLI) | payer MEDICARE, BC, OTHER | LOC: M WUC 09:59 | PROVIDERS: ATTEND Internal Medicine | DX: R07.89 Other chest pain (principal) ==

== ENCOUNTER → 2021-10-15 | Outpatient (CLI) | payer OTHER | LOC: M PLAIMG 09:57 | PROVIDERS: ATTEND Orthopaedic Surgery Sports Medicine | DX: M25.512 Pain in left shoulder (principal) ==

== ENCOUNTER → 2021-10-19 | Outpatient (CLI) | payer MEDICARE, BC, OTHER | LOC: M PLAIMG 10:21 | PROVIDERS: ATTEND Internal Medicine | DX: R07.89 Other chest pain (principal) ==

== ENCOUNTER → 2024-02-13 | Outpatient (REF) | payer MEDICARE, BC, OTHER ==
[2024-02-14 14:04] LABS: FERRITIN 139.3 NG/ML (10.5-307.3)
[2024-02-14 14:06] LABS: PERCENT SATURATION 25.2 % (19.7-50.0)
== END ==
LOC: M LAB REF 13:12
PROVIDERS: ATTEND Internal Medicine
DX: D64.9 Anemia, unspecified (principal)

== ENCOUNTER → 2024-02-22 | Outpatient (CLI) | payer MEDICARE, BC | LOC: M CARPUL 09:03 | PROVIDERS: ATTEND Internal Medicine | DX: R01.1 Cardiac murmur, unspecified (principal); I08.3 Combined rheumatic disorders of mitral, aortic and tricuspid valves ==

== ENCOUNTER → 2025-02-22 | Outpatient (CLI) | payer MEDICARE, BC ==
[~2025-02-22] MED LIST changes: -PRAV20TA2 PO; +PRAV20TA78 PO
== END ==
LOC: M RAD 08:02
PROVIDERS: ATTEND Internal Medicine Cardiovascular Disease
DX: I10 Essential (primary) hypertension (principal); R00.2 Palpitations; I35.8 Other nonrheumatic aortic valve disorders